=== PATIENT | male | born 1940 | race Caucasian/White ===

== ENCOUNTER 2017-10-05 16:40 | Emergency (ER) | payer MEDICARE, BC ==
[2017-10-05 17:44] LABS: ABS Basophils 0 10^3/ul (0-0.2); ABS Eosinophils 0.1 10^3/ul (0-0.6); ABS Lymphocytes 1.6 10^3/ul (1.0-4.8); ABS Monocytes 0.9 10^3/ul (0-0.8); ABS Neutrophils 3.9 10^3/ul (1.5-7.7); ABS Nucleated RBC 0 10^3/ul; Eosinophil % 1.3 % (0-6); Hematocrit 49 % (42-52); Hemoglobin 16.8 g/dl (14.0-18.0); Lymphocyte % 24.3 % (25-47); Mean Corpuscular HGB Conc 34 g/dl (31-36); Mean Corpuscular Hemoglobin 31 pg (27-31); Mean Corpuscular Volume 90 fL (80-94); Mean Platelet Volume 8.4 um3 (7.4-10.4); Nucleated Red Blood Cells % 0; Platelet Count 135 10^3/ul (150-450); Red Blood Count 5.46 10^6/ul (4.00-5.40); Red Cell Distribution Width 13 % (10.5-15); White Blood Count 6.6 10^3/ul (3.5-10.8)
[2017-10-05 17:52] LABS: INR 0.97 (0.77-1.02)
[2017-10-05 18:01] LABS: EGFR Non-African American 58.5 (>60)
--- NOTE | 2017-10-05 18:11 | RAD ---
HISTORY: chest pain COMPARISONS: January 14, 2013 VIEWS: 3: frontal dual-energy view of the chest FINDINGS: CARDIOMEDIASTINAL SILHOUETTE: The cardiomediastinal silhouette is normal. MONTY: The monty are normal. PLEURA: The costophrenic angles are sharp. No pleural abnormalities are noted. LUNG PARENCHYMA: The lungs are clear. ABDOMEN: The upper abdomen is clear. There is no subphrenic gas. BONES AND SOFT TISSUES: No bone or soft tissue abnormalities are noted. OTHER: None. IMPRESSION: NO ACTIVE CARDIOPULMONARY DISEASE.
[2017-10-05 21:29] VITALS: BP 115/74
--- NOTE | 2017-10-22 11:15 | ED ---
Negra Boo Gabriel, scribed for Andres Goff MD on 10/05/17 at 1953 . HPI Chest Pain - HPI Summary HPI Summary: This patient is a 77 year old M presenting to [facility] with a chief complaint of CP that began this morning after the patient mowed his yard. Pt sees Dr. Spivey due to this CP being chronic although it is intermittent, he has had recent blood work (6-10) and recent EKGs. He has been doing a large amount of yard work and states it may be a pulled muscle. The patient rates the dull pain 0/10 in severity currently and states it did not radiate. Symptoms alleviated by spontaneous resolution. Patient reports diaphoresis. Patient denies SOB. - History of Current Complaint Chief Complaint: EDChestPainROMI Time Seen by Provider: 10/05/17 19:53 Hx Obtained From: Patient Onset/Duration: Resolved Timing: Intermittent Initial Severity: Mild Current Severity: None Pain Intensity: 0 Pain Scale Used: 0-10 Numeric Chest Pain Location: Diffuse Chest Pain Radiates: No Character: Dull/Aching Associated Signs and Symptoms: Positive: Diaphoresis. Negative: Shortness of Breath - Allergy/Home Medications Allergies/Adverse Reactions: Allergies Allergy/AdvReac Type Severity Reaction Status Date / Time shellfish derived Allergy Rash Verified 10/05/17 16:52 PMH/Surg Hx/FS Hx/Imm Hx Endocrine/Hematology History: Denies: Hx Diabetes Cardiovascular History: Denies: Hx Congestive Heart Failure, Hx Hypertension, Other Cardiovascular Problems/Disorders Respiratory History: Reports: Hx Sleep Apnea GI History: Reports: Hx Gastroesophageal Reflux Disease - Controlled with PRN tums or famotidine History: Denies: Hx Renal Disease Sensory History: Reports: Hx Contacts or Glasses Opthamlomology History: Reports: Hx Contacts or Glasses Neurological History: Denies: Hx Headaches Infectious Disease History: No Infectious Disease History: Denies: Traveled Outside the [place] in Last 30 Days - Family History Known Family History: Negative: Respiratory Disease, Seizure Disorder - Social History Alcohol Use: None Substance Use Type: Reports: None Smoking Status (MU): Never Smoked Tobacco Review of Systems Positive: Skin Diaphoresis Positive: Chest Pain Negative: Shortness Of Breath All Other Systems Reviewed And Are Negative: Yes Physical Exam - Summary Physical Exam Summary: Appearance: Well-appearing, no distress, Well-nourished Skin: Warm, color reflects adequate perfusion Head: Normal Head/Face inspection Eyes: Conjunctiva clear ENT: Normal inspection Neck: Supple, no nodes, no JVD. Respiratory: Lungs clear, Normal breath sounds, no respiratory distress Cardio: RRR, No murmur, pulses normal, brisk capillary refill Abdomen: soft, nontender, no guarding, no rebound Bowel sounds: present Musculoskeletal: Strength Intact/ ROM intact. No calf tenderness. No edema. Neuro: Alert, muscle tone normal, facial symmetry, speech normal, sensory/motor intact Psychological: Normal Triage Information Reviewed: Yes Vital Signs On Initial Exam: Initial Vitals Temp Pulse Resp BP Pulse Ox 97.8 F 91 18 128/90 94 10/05/17 16:48 10/05/17 16:48 10/05/17 16:48 10/05/17 16:48 10/05/17 16:48 Vital Signs Reviewed: Yes Diagnostics - Vital Signs Vital Signs Temp Pulse Resp BP Pulse Ox 10/05/17 18:48 97.7 F 72 20 133/94 98 10/05/17 16:48 97.8 F 91 18 128/90 94 - Laboratory Lab Results: Lab Results 10/05/17 10/05/17 10/05/17 Range/Units 17:31 17:31 17:31 WBC 6.6 (3.5-10.8) 10^3/ul RBC 5.46 H (4.00-5.40) 10^6/ul Hgb 16.8 (14.0-18.0) g/dl Hct 49 (42-52) % MCV 90 (80-94) fL MCH 31 (27-31) pg MCHC 34 (31-36) g/dl RDW 13 (10.5-15) % Plt Count 135 L (150-450) 10^3/ul MPV 8.4 (7.4-10.4) um3 Neut % (Auto) 59.8 (38-83) % Lymph % (Auto) 24.3 L (25-47) % Harnett % (Auto) 14.1 H (0-7) % Eos % (Auto) 1.3 (0-6) % Baso % (Auto) 0.5 (0-2) % Absolute Neuts (auto) 3.9 (1.5-7.7) 10^3/ul Absolute Lymphs (auto) 1.6 (1.0-4.8) 10^3/ul Absolute Monos (auto) 0.9 H (0-0.8) 10^3/ul Absolute Eos (auto) 0.1 (0-0.6) 10^3/ul Absolute Basos (auto) 0 (0-0.2) 10^3/ul Absolute Nucleated RBC 0 10^3/ul Nucleated RBC % 0 INR (Anticoag Therapy) 0.97 (0.77-1.02) APTT 38.2 H (26.0-36.3) seconds Sodium 142 (135-145) mmol/L Potassium 4.2 (3.5-5.0) mmol/L Chloride 108 (101-111) mmol/L Carbon Dioxide 26 (22-32) mmol/L Anion Gap 8 (2-11) mmol/L BUN 21 (6-24) mg/dL Creatinine 1.21 H (0.67-1.17) mg/dL Est GFR ( Amer) 75.2 (>60) Est GFR (Non-Af Amer) 58.5 (>60) BUN/Creatinine Ratio 17.4 (8-20) Glucose 92 (70-100) mg/dL Lactic Acid (0.5-2.0) mmol/L Calcium 9.9 (8.6-10.3) mg/dL Magnesium 2.2 (1.9-2.7) mg/dL Total Bilirubin 0.80 (0.2-1.0) mg/dL AST 21 (13-39) U/L ALT 16 (7-52) U/L Alkaline Phosphatase 40 (34-104) U/L Troponin I 0.00 (<0.04) ng/mL Total Protein 7.1 (6.4-8.9) g/dL Albumin 4.3 (3.2-5.2) g/dL Globulin 2.8 (2-4) g/dL Albumin/Globulin Ratio 1.5 (1-3) TSH 1.95 (0.34-5.60) mcIU/mL 10/05/17 Range/Units 17:31 WBC (3.5-10.8) 10^3/ul RBC (4.00-5.40) 10^6/ul Hgb (14.0-18.0) g/dl Hct (42-52) % MCV (80-94) fL MCH (27-31) pg MCHC (31-36) g/dl RDW (10.5-15) % Plt Count (150-450) 10^3/ul MPV (7.4-10.4) um3 Neut % (Auto) (38-83) % Lymph % (Auto) (25-47) % Harnett % (Auto) (0-7) % Eos % (Auto) (0-6) % Baso % (Auto) (0-2) % Absolute Neuts (auto) (1.5-7.7) 10^3/ul Absolute Lymphs (auto) (1.0-4.8) 10^3/ul Absolute Monos (auto) (0-0.8) 10^3/ul Absolute Eos (auto) (0-0.6) 10^3/ul Absolute Basos (auto) (0-0.2) 10^3/ul Absolute Nucleated RBC 10^3/ul Nucleated RBC % INR (Anticoag Therapy) (0.77-1.02) APTT (26.0-36.3) seconds Sodium (135-145) mmol/L Potassium (3.5-5.0) mmol/L Chloride (101-111) mmol/L Carbon Dioxide (22-32) mmol/L Anion Gap (2-11) mmol/L BUN (6-24) mg/dL Creatinine (0.67-1.17) mg/dL Est GFR ( Amer) (>60) Est GFR (Non-Af Amer) (>60) BUN/Creatinine Ratio (8-20) Glucose (70-100) mg/dL Lactic Acid 0.7 (0.5-2.0) mmol/L Calcium (8.6-10.3) mg/dL Magnesium (1.9-2.7) mg/dL Total Bilirubin (0.2-1.0) mg/dL AST (13-39) U/L ALT (7-52) U/L Alkaline Phosphatase (34-104) U/L Troponin I (<0.04) ng/mL Total Protein (6.4-8.9) g/dL Albumin (3.2-5.2) g/dL Globulin (2-4) g/dL Albumin/Globulin Ratio (1-3) TSH (0.34-5.60) mcIU/mL Result Diagrams: 10/05/17 17:31 10/05/17 17:31 Lab Statement: Any lab studies that have been ordered have been reviewed, and results considered in the medical decision making process. - Radiology CXR Radiology Interpretation Completed By: Radiologist - NO ACTIVE CARDIOPULMONARY DISEASE. ED physician has reviewed this radiology report. - EKG 1635 Cardiac Rate: NL EKG Rhythm: Sinus Rhythm - at 88 BPM EKG Interpretation: nml rate, nml axis, no ST changes Re-Evaluation - Re-Evaluation First Eval Re-Evaluation Time: 21:10 Change: Improved Comment: Pt resting comfortably in bed. pt with negative troponin x2; pt symptoms atypical in nature. Plan for symptomatic tx with close f/u. Chest Pain Course/Dx - Chest Pain Differential Diagnosis/HQI/PQRI: Acute IA, ACS, Angina, Aortic Aneurysm, CHF, Chest Wall, GI Disease, Pulmonary Edema, Pulmonary Embolism - Diagnoses Provider Diagnoses: Atypical chest pain Discharge - Sign-Out/Discharge Documenting (check all that apply): Discharge/Admit/Transfer - Discharge Plan Condition: Improved Disposition: HOME Patient Education Materials: Chest Pain (ED) Referrals: Francisco Reid MD [Primary Care Provider] - - Billing Disposition and Condition Condition: IMPROVED Disposition: Home The documentation as recorded by the Negra mc Gabriel accurately reflects the service I personally performed and the decisions made by , Andres Goff MD.
== END 2017-10-05 21:30 | disposition home or self-care (01) ==
LOC: ED 16:40
DX: R07.89 Other chest pain (principal)
CPT/HCPCS: 36415; 71045; 80053; 83605; 83735; 84443; 84484; 85025; 85610; 85730; 93005; 99282

== ENCOUNTER 2020-06-21 10:57 | Observation (INO) ==
[2020-06-21] MEDS ORDERED: NS 0.9% 1000 ml BAG 1,000 ML IV ONE (11:20)
[2020-06-21 11:55] LABS: ABS Eosinophils 0.1 10^3/ul (0-0.6); ABS Lymphocytes 1.1 10^3/ul (1.0-4.8); ABS Monocytes 0.7 10^3/ul (0-0.8); ABS Neutrophils 3.1 10^3/ul (1.5-7.7); Eosinophil % 1.1 %; Hematocrit 46 % (42-52); Hemoglobin 15.8 g/dL (14.0-18.0); Lymphocyte % 21.7 %; Mean Corpuscular HGB Conc 34 g/dL (31-36); Mean Corpuscular Hemoglobin 31 pg (27-31); Mean Corpuscular Volume 90 fL (80-94); Mean Platelet Volume 8.7 fL (7.4-10.4); Nucleated Red Blood Cells % 0.1; Platelet Count 121 10^3/uL (150-450); Red Blood Count 5.17 10^6 /uL (4.18-5.48); Red Cell Distribution Width 13 % (10-15)
[2020-06-21 12:13] LABS: Albumin 4.2 g/dL (3.2-5.2); Albumin/Globulin Ratio 1.8 (1-3); BUN/Creatinine Ratio 17.3 (8-20); Calcium 9.2 mg/dL (8.6-10.3); EGFR African American 78.5 (>60); EGFR Non-African American 64.9 (>60); Globulin 2.4 g/dL (2-4); Potassium 3.8 mmol/L (3.5-5.0); Total Bilirubin 0.6 mg/dL (0.2-1.0); Total Protein 6.6 g/dL (6.4-8.9)
[2020-06-21] MEDS ORDERED: Nitroglycerin 0.3 mg TAB SL PRN (14:12)
[2020-06-21] MEDS ORDERED: Perflutren Lipid Microsphere 3 ML VIAL ONE (15:24)
[2020-06-21] MEDS: Enoxaparin 40 MG/0.4 ML SYR SUBCUT SCH (15:33)
[2020-06-21] MEDS ORDERED: Latanoprost 0.005% 2.5 ml BTL BOTH EYES SCH (21:00)
[2020-06-21] MEDS ORDERED: Mupirocin 2% OINT TUBE TOPICAL SCH (21:00)
[2020-06-21] MEDS ORDERED: MUPIROCIN 2% TOPICAL SCH (21:46)
[2020-06-21] MEDS ORDERED: PTO:Travoprost 0.004% (NF) OPHTH.SOLN BOTH EYES SCH (22:00)
[2020-06-21] MEDS: MUPIROCIN 2% TOPICAL SCH (22:05)
[2020-06-22] MEDS: PTO:Omeprazole 20 mg CAP (NF) PO SCH ×2 (05:38→11:49)
[2020-06-22] MEDS ORDERED: Aminophylline 25 MG/ML VIAL ONE (07:54)
[2020-06-22] MEDS ORDERED: Psyllium PAK PO SCH (09:00)
[2020-06-22] MEDS ORDERED: Cholecalciferol (VIT D3) 1,000 unit TAB PO SCH (09:00)
[2020-06-22] MEDS: MUPIROCIN 2% TOPICAL SCH ×2 (11:51→13:22)
[2020-06-22 15:49] VITALS: BP 129/74
[2020-06-22] MEDS: Enoxaparin 40 MG/0.4 ML SYR SUBCUT SCH (17:07)
== END 2020-06-22 17:15 | disposition home or self-care (01) ==
LOC: ED 10:57 → MEDTELE 10:57
PROVIDERS: ADMIT Student in an Organized Health Care Education/Training Program; ATTEND Pediatrics